=== PATIENT | male | born 1995 | race Caucasian/White ===

== ENCOUNTER 2020-04-15 15:26 | Emergency (ER) | payer SELFPAY ==
[2020-04-15] MEDS ORDERED: Doxycycline 100 MG Cap PO ONE (15:47)
--- NOTE | 2020-04-15 15:54 | EDM.PDOC ---
ED HPI GENERAL MEDICAL PROBLEM - General Chief Complaint: Skin Complaint Stated Complaint: TICK BITE Time Seen by Provider: 04/15/20 15:27 Source of Information: Reports: Patient History Limitations: Reports: No Limitations - History of Present Illness INITIAL COMMENTS - FREE TEXT/NARRATIVE: This is a 36-year-old male with no past medical history presenting with a tick bite. Yesterday, around 25 hours ago he noticed a tick in his left posterior hairline near the nape of the neck. The tick was not engorged when he removed it. Afterwards, he noticed that he had a localized area of swelling where the tick was attached and a swollen lymph node to the left posterior aspect of the neck. He denies any fever, chills, vomiting, headache, or body aches. No other concerns voiced. - Related Data Allergies Allergy/AdvReac Type Severity Reaction Status Date / Time No Known Allergies Allergy Verified 04/15/20 15:39 Home Meds: Home Meds . [No Known Home Meds] 04/15/20 [History] Past Medical History - Past Health History Medical/Surgical History: Denies Medical/Surgical History HEENT History: Reports: None Cardiovascular History: Reports: None Respiratory History: Reports: None Gastrointestinal History: Reports: None Genitourinary History: Reports: None Musculoskeletal History: Reports: None Neurological History: Reports: None Psychiatric History: Reports: None Endocrine/Metabolic History: Reports: None Hematologic History: Reports: None Immunologic History: Reports: None Oncologic (Cancer) History: Reports: None Dermatologic History: Reports: None - Infectious Disease History Infectious Disease History: Reports: None - Past Surgical History Head Surgeries/Procedures: Reports: None Male Surgical History: Reports: None Social & Family History - Family History Family Medical History: Noncontributory - Tobacco Use Smoking Status *Q: Current Every Day Smoker Years of Tobacco use: 2 Packs/Tins Daily: 0.5 - Caffeine Use Caffeine Use: Reports: None - Recreational Drug Use Recreational Drug Use: No ED ROS GENERAL - Review of Systems Review Of Systems: See Below Constitutional: Denies: Fever, Chills Cardiovascular: Denies: Chest Pain GI/Abdominal: Denies: Nausea, Vomiting Musculoskeletal: Denies: Neck Pain, Back Pain Skin: Reports: Other (Tick bite) Hematologic/Lymphatic: Reports: Swollen Glands ED EXAM, SKIN/RASH Exam: See Below Text/Narrative:: Vital signs reviewed. Nursing notes reviewed. Constitutional: Awake, alert, non-distressed. Head: Normocephalic, atraumatic. Localized area of swelling at the identified area of the tick bite. No associated erythema, induration, or streaking. Neck: Single enlarged lymph node in the posterior cervical chain. Eyes: EOMI, conjunctiva normal, no discharge, no scleral icterus. Ears, Nose, Throat: External ears and nose normal, moist oral mucosa. Pulmonary: normal work of breathing, no accessory muscle use. Integumentary: Appropriate color for ethnicity, warm, dry, no pallor or jaundice , no rash. Neurologic: Alert, answering questions appropriately, normal speech, no facial droop, moving all extremities well. Psychiatric: Appropriate mood and affect, normal thought process. Exam Limited By: No Limitations General Appearance: Alert, WD/WN, No Apparent Distress Ears: Normal External Exam, Normal Canal, Hearing Grossly Normal, Normal TMs Nose: Normal Inspection, Normal Mucosa, No Blood Throat/Mouth: Normal Inspection, Normal Lips, Normal Teeth, Normal Gums, Normal Oropharynx, Normal Voice, No Airway Compromise Head: Atraumatic, Normocephalic Neck: Normal Inspection, Supple, Non-Tender, Full Range of Motion Respiratory/Chest: No Respiratory Distress, Lungs Clear, Normal Breath Sounds, No Accessory Muscle Use, Chest Non-Tender Cardiovascular: Normal Peripheral Pulses, Regular Rate, Rhythm, No Edema, No Gallop, No JVD, No Murmur, No Rub GI/Abdominal: Normal Bowel Sounds, Soft, Non-Tender, No Organomegaly, No Distention, No Abnormal Bruit, No Mass (Male) Exam: No Hernia, Normal Inspection, Normal Prostate, Circumcised Rectal (Males) Exam: Normal Exam, Normal Rectal Tone, Prostate Normal Back Exam: Normal Inspection, Full Range of Motion, NT Extremities: Normal Inspection, Normal Range of Motion, Non-Tender, No Pedal Edema, Normal Capillary Refill Neurological: Alert, Oriented, CN II-XII Intact, Normal Cognition, Normal Gait, Normal Reflexes, No Motor/Sensory Deficits Psychiatric: Normal Affect, Normal Mood Lymphatic: No Adenopathy Course - Vital Signs Text/Narrative:: 24-year-old male presenting with a tick bite. Patient [hemodynamically stable, afebrile], well-appearing, looks nontoxic. Differential diagnosis includes but is not limited to: Localized reaction to tick bite, early Lyme disease, ehrlichiosis, babesiosis, [employer] spotted fever, tularemia No erythema migrans rash or evidence of associated cellulitis. No fever or systemic signs of illness or infection. There was 1 single enlarged lymph node adjacent to the tick bite. Single dose of doxycycline given for Lyme prophylaxis. I did discuss the with the patient our options for single dose doxycycline versus an extended course of treatment given the lymphadenopathy. It is likely this is a localized reaction to the tick bite, possibly an allergy to saliva or other type of localized reaction. The patient has no systemic signs of illness such as headache, rigors, fever, neck stiffness, or body aches. He wanted to wait to see if he develop any symptoms before considering a further course of antibiotics and I think this is reasonable. He was provided information about our family medicine clinic in case any symptoms develop, or he was told he could return to the emergency department. Plan: Patient is stable to discharge home with outpatient primary care follow- up. Strict emergency department return precautions were provided, patient indicated understanding. All questions were answered prior to departure. Discharged in good condition. Last Recorded V/S: Last Vital Signs Temp 36.2 C 04/15/20 15:43 Pulse 80 04/15/20 15:43 Resp 18 04/15/20 15:43 BP 125/76 04/15/20 15:43 Pulse Ox 98 04/15/20 15:43 - Orders/Labs/Meds Meds: Medications Discontinued Medications Generic Name Dose Route Start Last Admin Trade Name Freq PRN Reason Stop Dose Admin Doxycycline Hyclate 200 mg 04/15/20 15:47 04/15/20 16:06 Vibramycin PO 04/15/20 15:48 200 mg ONETIME ONE Administration Departure - Departure Time of Disposition: 15:58 Disposition: Home, Self-Care 01 Condition: Good Clinical Impression: Tick bite of occipital region of scalp Qualifiers: Encounter type: initial encounter Qualified Code(s): S00.06XA - Insect bite ( nonvenomous) of scalp, initial encounter - Discharge Information *PRESCRIPTION DRUG MONITORING PROGRAM REVIEWED*: Not Applicable *COPY OF PRESCRIPTION DRUG MONITORING REPORT IN PATIENT ANDRADE: Not Applicable Instructions: Tick Bite Information, Adult, [id number] Referrals: [facility] - Family Practice [Provider Group] - 1 Week (As needed, for follow-up of your tick bite.) Forms: ED Department Discharge Additional Instructions: Thank you for choosing the [facility] emergency department in [place] for your medical needs today. It was a pleasure caring for you. You were seen in the emergency department for a tick bite. You are given a single dose of an antibiotic called doxycycline. There are several tickborne diseases in [place], although by the description of your tick encounter, it sounds like it was fairly low risk since the tick was not attached to you for very long. We discussed a course of antibiotics and decided to wait to see if any symptoms develop. You should watch out for headache, fever, chills, a stiff neck, vomiting, or body aches. If these occur, you should either come back to the emergency department immediately or arrange to be evaluated by a primary care clinic. For severe symptoms, come to the emergency department immediately. The following information is given to patients seen in the emergency department who are being discharged. This information is to outline your options for follow -up care. We provide all patients seen in our emergency department with a follow -up referral. The need for follow-up, as well as the timing and circumstances, are variable depending upon the specifics of your emergency department visit. If you don't have a primary care physician on staff, we will provide you with a referral. We always advise you to contact your personal physician following an emergency department visit to inform them of the circumstance of the visit and for follow-up with them and/or the need for any referrals to a consulting specialist. The emergency department will also refer you to a specialist when appropriate. This referral assures that you have the opportunity for follow-up care with a specialist. All of these measure are taken in an effort to provide you with optimal care, which includes your follow-up. Under all circumstances we always encourage you to contact your private physician who remains a resource for coordinating your care. When calling for follow-up care, please make the office aware that this follow-up is from your recent emergency room visit. If for any reason you are refused follow-up, please contact the [facility] Emergency Department at and asked to speak to the emergency department charge nurse. If you do not have a primary care physician that is caring for you, you can contact these clinics below to set up an appointment to establish care: [facility] - Primary Care [address] [place] [id number] [id number] Sepsis Event Note - Evaluation Sepsis Screening Result: No Definite Risk - Focused Exam Vital Signs: Vital Signs Temp Pulse Resp BP Pulse Ox 04/15/20 15:43 36.2 C 80 18 125/76 98 Date Exam was Performed: 04/15/20 Time Exam was Performed: 16:14
== END 2020-04-15 16:11 | disposition home or self-care (01) ==
LOC: MW.ED 15:26
DX: S00.06XA Insect bite (nonvenomous) of scalp, initial encounter (principal); F17.210 Nicotine dependence, cigarettes, uncomplicated; W57.XXXA Bitten or stung by nonvenomous insect and other nonvenomous arthropods, initial encounter
CPT/HCPCS: 99281; A9270; 99282

== ENCOUNTER 2020-06-19 20:47 | Emergency (ER) | payer SELFPAY ==
--- NOTE | 2020-06-19 21:31 | EDM.PDOC ---
<Mora Stahl R - Last Filed: 06/19/20 22:19> ED HPI GENERAL MEDICAL PROBLEM - General Chief Complaint: Genitourinary Problem Stated Complaint: TROUBLE URINATING Time Seen by Provider: 06/19/20 21:16 Source of Information: Reports: Patient History Limitations: Reports: No Limitations - History of Present Illness INITIAL COMMENTS - FREE TEXT/NARRATIVE: Patient presents reporting urinary retention. He works as a garcia/rancher. He reports he was crawling under a fence on 06/04/2020 when he accidentally contacted an electric fence wire on his genitals. Since that time he has had problems with his urine stream. At first it was hesitancy and slowness of stream which persisted until a couple of days ago when he started having difficulty starting the stream and then just dribbling. Now today he cannot start the stream at all. He is having a lot of bladder pain and has not voided for 8 hours. He has been intentionally decreasing his fluid intake. No other injuries. He is otherwise healthy without chronic medical problems and takes no medications bladder Pain Score (Numeric/FACES): 5 - Related Data Allergies Allergy/AdvReac Type Severity Reaction Status Date / Time No Known Allergies Allergy Verified 06/19/20 21:13 Home Meds: Home Meds . [No Known Home Meds] 04/15/20 [History] Past Medical History - Past Health History Medical/Surgical History: Denies Medical/Surgical History HEENT History: Reports: None Cardiovascular History: Reports: None Respiratory History: Reports: None Gastrointestinal History: Reports: None Genitourinary History: Reports: None Musculoskeletal History: Reports: None Neurological History: Reports: None Psychiatric History: Reports: None Endocrine/Metabolic History: Reports: None Hematologic History: Reports: None Immunologic History: Reports: None Oncologic (Cancer) History: Reports: None Dermatologic History: Reports: None - Infectious Disease History Infectious Disease History: Reports: Chicken Pox - Past Surgical History Head Surgeries/Procedures: Reports: None Male Surgical History: Reports: None Social & Family History - Family History Family Medical History: Noncontributory - Tobacco Use Smoking Status *Q: Current Every Day Smoker Years of Tobacco use: 3 Packs/Tins Daily: 0.5 - Caffeine Use Caffeine Use: Reports: None - Recreational Drug Use Recreational Drug Use: No ED ROS GENERAL - Review of Systems Review Of Systems: Comprehensive ROS is negative, except as noted in HPI. ED EXAM, RENAL/ - Physical Exam Exam: See Below Exam Limited By: No Limitations General Appearance: Alert, No Apparent Distress Ears: Normal External Exam Nose: Normal Inspection Throat/Mouth: Normal Inspection Head: Atraumatic, Normocephalic Neck: Normal Inspection Respiratory/Chest: No Respiratory Distress, Lungs Clear, Normal Breath Sounds Cardiovascular: Normal Peripheral Pulses, Regular Rate, Rhythm (Male) Exam: Suprapubic Fullness. No: Scrotal Swelling, Scrotum Tenderness (L), Scrotum Tenderness (R), Testicular Mass, Testicular Tenderness (L), Testicular Tenderness (R), Urethral Discharge Back Exam: Normal Inspection Extremities: Normal Inspection Neurological: Alert, Oriented, Normal Cognition Psychiatric: Normal Affect, Normal Mood Skin Exam: Warm, Dry, Intact, Normal Color, No Rash Lymphatic: No Adenopathy Departure - Departure Disposition: Home, Self-Care 01 Clinical Impression: Retention of urine, Injury by electrocution - Discharge Information Instructions: Indwelling Urinary Catheter Care, Adult, Acute Urinary Retention, Male, [id number] Referrals: PCP,None [Primary Care Provider] - Forms: ED Department Discharge Additional Instructions: Your seen and evaluated in the ER today secondary to urinary retention. You will be sent home with a Marie catheter and a leg bag to assist with preventing further discomfort from urinary retention. Please make an appointment to see Dr. Porter. Please call in the morning for an appointment. [facility] - Urology [address] [place] [id number] The following information is given to patients seen in the emergency department who are being discharged to home. This information is to outline your options for follow-up care. We provide all patients seen in our emergency department with a follow-up referral. The need for follow-up, as well as the timing and circumstances, are variable depending upon the specifics of your emergency department visit. If you don't have a primary care physician on staff, we will provide you with a referral. We always advise you to contact your personal physician following an emergency department visit to inform them of the circumstance of the visit and for follow-up with them and/or the need for any referrals to a consulting specialist. The emergency department will also refer you to a specialist when appropriate. This referral assures that you have the opportunity for follow-up care with a specialist. All of these measure are taken in an effort to provide you with optimal care, which includes your follow-up. Under all circumstances we always encourage you to contact your private physician who remains a resource for coordinating your care. When calling for follow-up care, please make the office aware that this follow-up is from your recent emergency room visit. If for any reason you are refused follow-up, please contact the [facility] Emergency Department at and asked to speak to the emergency department charge nurse. Sepsis Event Note (ED) - Evaluation Sepsis Screening Result: No Definite Risk <Todd Castillo - Last Filed: 06/19/20 23:20> Course - Vital Signs Last Recorded V/S: Last Vital Signs Temp 98.2 F 06/19/20 21:10 Pulse 65 06/19/20 21:10 Resp 16 06/19/20 21:10 BP 118/61 06/19/20 21:10 Pulse Ox 98 06/19/20 21:10 - Orders/Labs/Meds Orders: Active Orders 24 hr Category Date Time Status Bladder Scan [RC] ASDIRECTED Care 06/19/20 21:24 Active Marie Catheter Insertion [Insert Urinary Catheter] [OM. Care 06/19/20 21:30 Ordered PC] Q24H Urinary Catheter Assessment [RC] ASDIRECTED Care 06/19/20 21:26 Active Labs: Laboratory Tests 06/19/20 06/19/20 06/19/20 Range/Units 21:47 21:47 22:15 WBC 9.21 (4.0-11.0) K/uL RBC 4.94 (4.50-5.90) M/uL Hgb 14.6 (13.0-17.0) g/dL Hct 43.1 (38.0-50.0) % MCV 87.2 (80.0-98.0) fL MCH 29.6 (27.0-32.0) pg MCHC 33.9 (31.0-37.0) g/dL RDW Std Deviation 40.5 (28.0-62.0) fl RDW Coeff of [place] 13 (11.0-15.0) % Plt Count 301 (150-400) K/uL MPV 10.10 (7.40-12.00) fL Neut % (Auto) 53.3 (48.0-80.0) % Lymph % (Auto) 33.2 (16.0-40.0) % [place] % (Auto) 7.9 (0.0-15.0) % Eos % (Auto) 4.8 (0.0-7.0) % Baso % (Auto) 0.8 (0.0-1.5) % Neut # (Auto) 4.9 (1.4-5.7) K/uL Lymph # (Auto) 3.1 H (0.6-2.4) K/uL Mccone # (Auto) 0.7 (0.0-0.8) K/uL Eos # (Auto) 0.4 (0.0-0.7) K/uL Baso # (Auto) 0.1 (0.0-0.1) K/uL Nucleated RBC % 0.0 /100WBC Nucleated RBCs # 0 K/uL Sodium 139 (136-148) mmol/L Potassium 4.1 (3.5-5.1) mmol/L Chloride 104 (98-107) mmol/L Carbon Dioxide 27.4 (21.0-32.0) mmol/L BUN 17 (7.0-18.0) mg/dL Creatinine 1.0 (0.8-1.3) mg/dL Est Cr Clr Drug Dosing 108.30 mL/min Estimated GFR (MDRD) > 60.0 ml/min Glucose 94 (74-106) mg/dL Calcium 8.6 (8.5-10.1) mg/dL Total Bilirubin 0.3 (0.2-1.0) mg/dL AST 16 (15-37) IU/L ALT 28 (14-63) IU/L Alkaline Phosphatase 80 (46-116) U/L Total Protein 7.4 (6.4-8.2) g/dL Albumin 4.1 (3.4-5.0) g/dL Globulin 3.3 (2.6-4.0) g/dL Albumin/Globulin Ratio 1.2 (0.9-1.6) Urine Color YELLOW Urine Appearance CLEAR Urine pH 6.0 (5.0-8.0) Ur Specific [place] >= 1.030 (1.001-1.035) Urine Protein NEGATIVE (NEGATIVE) mg/dL Urine Glucose (UA) NEGATIVE (NEGATIVE) mg/dL Urine Ketones NEGATIVE (NEGATIVE) mg/dL Urine Occult Blood SMALL H (NEGATIVE) Urine Nitrite NEGATIVE (NEGATIVE) Urine Bilirubin NEGATIVE (NEGATIVE) Urine Urobilinogen 0.2 (<2.0) EU/dL Ur Leukocyte Esterase NEGATIVE (NEGATIVE) Urine RBC 5-6 (0-2/HPF) Urine WBC 0-1 (0-5/HPF) Ur Epithelial Cells RARE (NONE-FEW) Urine Bacteria FEW (NEGATIVE) Urine Mucus LIGHT (NONE-MOD) - Re-Assessments/Exams Free Text/Narrative Re-Assessment/Exam: 06/19/20 23:16 Signout received at 10:15 PM: 24-year-old gentleman who presents ER today with electrocution injury to his perineal area approximately 1 week ago presents to the ER today secondary to urinary retention and difficulty urinating. Patient has a Marie catheter in place with a postvoid residual of greater than 350 cc. Patient's urinalysis is within normal limits. Patient CBC and chemistry are within normal limits. Patient will need referral to see urology for definitive management as to the cause of his urinary retention. Most likely would be scar tissue/edema in his urethra secondary to the electrocution injury. Less likely causes would be nerve injury. Patient will be referred to Dr. Porter from urology for definitive management. Patient will be sent home with a Marie catheter and leg bag. Reassessment at the time of disposition demonstrates that the patient is in no acute distress. The patient has remained stable throughout the entire ED visit and is without objective evidence for acute process requiring urgent intervention or hospitalization. The patient is stable for discharge, counseling is provided as documented above, discussed symptomatic treatment and specific conditions for return. I have spoken with the patient/caregive and discussed todays findings, in addition to providing specific details for the plan of care. Questions are answered and there is agreement with the plan. Departure - Departure Time of Disposition: 23:18 Condition: Good Sepsis Event Note (ED) - Focused Exam Vital Signs: Vital Signs Temp Pulse Resp BP Pulse Ox 06/19/20 21:10 98.2 F 65 16 118/61 98
[2020-06-19 22:27] LABS: BLOOD UREA NITROGEN,BUN 17 mg/dL (7.0-18.0); CARBON DIOXIDE,CO2 27.4 mmol/L (21.0-32.0); CHLORIDE,CL 104 mmol/L (98-107); GLUCOSE RANDOM 94 mg/dL (74-106); POTASSIUM,K 4.1 mmol/L (3.5-5.1); SODIUM,NA 139 mmol/L (136-148)
== END 2020-06-19 23:38 | disposition home or self-care (01) ==
LOC: MW.ED 20:47
DX: T75.4XXA Electrocution, initial encounter (principal); F17.210 Nicotine dependence, cigarettes, uncomplicated; R33.9 Retention of urine, unspecified
CPT/HCPCS: 36415; 51702; 51798; 80053; 81001; 85025; 99283